=== PATIENT | male | born 1950 | race Caucasian/White ===

== ENCOUNTER → 2017-05-01 | Outpatient (CLI) | payer OTHER, BC ==
[~2017-05-01] MED LIST: ASPEC81 PO; OXYC-57 PO; SULF800T23 PO; VYTUNK; ZFRODT4 SL
[2017-05-01 13:22] LABS: HEMATOCRIT 51.3 % (42-52); MEAN CELL VOLUME 95.5 fL (80-100); MEAN CORPUSCULAR HEMOGLOBIN 32.2 pg (25-34); MEAN CORPUSCULAR HGB CONC 33.7 g/dl (32-36); PLATELET COUNT 293 K/uL (130-400); RED BLOOD COUNT 5.37 M/uL (4.7-6.1); WHITE BLOOD COUNT 8.29 K/uL (4.8-10.8)
[2017-05-01 13:34] LABS: ALT/SGPT 58 U/L (12-78); BLOOD UREA NITROGEN 16 mg/dl (7-18); BUN/CREATININE RATIO 16.1 (10-20); CARBON DIOXIDE 27 mmol/L (21-32); CHLORIDE 105 mmol/L (98-107); CHOLESTEROL 163 mg/dl (0-200); CREATININE 0.97 mg/dl (0.60-1.40); GLUCOSE 92 mg/dl (70-99); POTASSIUM 4.1 mmol/L (3.5-5.1); SODIUM 138 mmol/L (136-145); TRIGLYCERIDES 209 mg/dl (0-150); VERY LOW DENSITY LIPOPROT CALC 42 mg/dl
[2017-05-01 13:37] LABS: CHOLESTEROL/HDL RATIO 4.4; HDL CHOLESTEROL 37 mg/dl
== END | disposition home or self-care (01) ==
LOC: C.LABMFLN 09:44
PROVIDERS: ATTEND Family Medicine
DX: E78.00 Pure hypercholesterolemia, unspecified (principal); L40.9 Psoriasis, unspecified

== ENCOUNTER → 2017-08-19 | Outpatient (CLI) | payer OTHER, BC | END | disposition home or self-care (01) | LOC: C.LABMFLN 09:58 | PROVIDERS: ATTEND Family Medicine | DX: R30.0 Dysuria (principal) ==

== ENCOUNTER → 2017-11-04 | Outpatient (CLI) | payer OTHER, BC ==
[2017-11-04 12:28] LABS: HEMATOCRIT 52.7 % (42-52); MEAN CELL VOLUME 96.2 fL (80-100); MEAN CORPUSCULAR HEMOGLOBIN 32.8 pg (25-34); MEAN CORPUSCULAR HGB CONC 34.2 g/dl (32-36); PLATELET COUNT 283 K/uL (130-400); RED CELL DISTRIBUTION WIDTH SD 49.1 fL (36.4-46.3); WHITE BLOOD COUNT 9.06 K/uL (4.8-10.8)
[2017-11-04 12:57] LABS: ALT/SGPT 44 U/L (12-78); LDL CHOLESTEROL (DIRECT) 128 mg/dl
== END | disposition home or self-care (01) ==
LOC: C.LABMFLN 08:44
PROVIDERS: ATTEND Family Medicine
DX: E78.00 Pure hypercholesterolemia, unspecified (principal); D75.1 Secondary polycythemia

== ENCOUNTER → 2018-05-01 | Outpatient (CLI) | payer OTHER, BC ==
[2018-05-01 12:46] LABS: HEMATOCRIT 53.5 % (42-52); HEMOGLOBIN 18.6 g/dL (14.0-18.0); MEAN CELL VOLUME 93.7 fL (80-100); MEAN CORPUSCULAR HEMOGLOBIN 32.6 pg (25-34); MEAN CORPUSCULAR HGB CONC 34.8 g/dl (32-36); MEAN PLATELET VOLUME 10.9 fL (7.4-10.4); PLATELET COUNT 250 K/uL (130-400); RED CELL DISTRIBUTION WIDTH CV 13.3 % (11.5-14.5); RED CELL DISTRIBUTION WIDTH SD 45.4 fL (36.4-46.3); WHITE BLOOD COUNT 9.36 K/uL (4.8-10.8)
[2018-05-01 15:01] LABS: ALT/SGPT 58 U/L (12-78); BLOOD UREA NITROGEN 20 mg/dl (7-18); CALCIUM 8.8 mg/dl (8.5-10.1); CARBON DIOXIDE 24 mmol/L (21-32); CHOLESTEROL 228 mg/dl (0-200); CREATININE 1.11 mg/dl (0.60-1.40); GLUCOSE 104 mg/dl (70-99); LDL CHOLESTEROL CALCULATED 151 mg/dl; POTASSIUM 4.3 mmol/L (3.5-5.1); SODIUM 138 mmol/L (136-145)
== END | disposition home or self-care (01) ==
LOC: C.LABMFLN 09:29
PROVIDERS: ATTEND Family Medicine
DX: L40.9 Psoriasis, unspecified (principal); E78.00 Pure hypercholesterolemia, unspecified; D75.1 Secondary polycythemia; I10 Essential (primary) hypertension